=== PATIENT | female | born 1980 | race Caucasian/White ===

== ENCOUNTER 2019-01-08 14:49 | Emergency (ER) | payer OTHER ==
[~2019-01-08] VITALS: Ht 167.6 cm; Wt 63.5 kg
[~2019-01-08 14:49] MED LIST: BACTRIM DS TAB1 EACH PO; IBUPROFEN800 MG PO; MILLIPRED5 MG; NEURONTIN300 MG; PYRIDIUM200 MG PO
[2019-01-08] MEDS ORDERED: ORPHENADRINE C100 MG PO (19:27)
[2019-01-08] MEDS ORDERED: KETO10TA2 PO (19:27)
[2019-01-08] MEDS ORDERED: PEPCID AC20 MG PO (19:27)
== END 2019-01-08 20:02 | disposition home or self-care (01) ==
LOC: ER 14:49
DX: M94.0 Chondrocostal junction syndrome [Tietze] (principal); R07.89 Other chest pain

== ENCOUNTER 2019-02-19 13:38 | Emergency (ER) | payer OTHER ==
[~2019-02-19] VITALS: Ht 167.6 cm; Wt 63.5 kg
[~2019-02-19 13:38] MED LIST changes: +KETO10TA2 PO; +ORPHENADRINE C100 MG PO; +PEPCID AC20 MG PO
== END 2019-02-19 20:20 | disposition home or self-care (01) ==
LOC: ER 13:38
DX: N20.0 Calculus of kidney (principal); R10.31 Right lower quadrant pain

== ENCOUNTER 2024-12-25 20:18 | Emergency (ER) | payer OTHER ==
[~2024-12-25] VITALS: Ht 167.6 cm; Wt 64.4 kg
[2024-12-25 21:16] LABS: INR 1.05; PARTIAL THROMBOPLASTIN TIME 25.6 SECONDS (22.0-34.0); PROTHROMBIN TIME 11.4 SECONDS (9.0-11.5)
[2024-12-25 21:19] LABS: CALCIUM 8.6 mg/dL (8.5-10.1); CREATININE SERUM 0.67 mg/dL (0.55-1.02); GFR 95.18; POTASSIUM 4.12 mEq/L (3.5-5.1)
[2024-12-25] MEDS ORDERED: hydrOXYzine PAMOATE 25 MG CAPSULE PO ONE ×2 (22:53→23:00)
== END 2024-12-25 23:05 ==
LOC: ER 20:18
PROVIDERS: Emergency Medicine
DX: F41.8 Other specified anxiety disorders (principal); I10 Essential (primary) hypertension